=== PATIENT | female | born 1965 | race Caucasian/White ===

== ENCOUNTER → 2019-11-16 11:08 | Outpatient (CLI) | payer MEDICARE, SELFPAY ==
--- NOTE | ~2019-11-16 | DEXA_ITS ---
Bone Density Report Name: Sunni Ibarra Age: 54 Sex: Female Ethnicity: White Date of : 1965 Indication: postmenopausal; screening for osteoporosis; height loss; Referring Provider: GEMMA ANGELES Study: Bone densitometry was performed. Exam Date: November 16, 2019 Accession number: [id number] Bone Density: Region BMD T-score Z-score Classification AP Spine (L1-L4) 0.933 -1.0 0.0 Normal Femoral Neck (Left) 0.712 -1.2 -0.2 Osteopenia Total Hip (Left) 0.894 -0.4 0.3 Normal Femoral Neck (Right) 0.661 -1.7 -0.7 Osteopenia Total Hip (Right) 0.874 -0.6 0.1 Normal Total Hip Mean 0.884 -0.5 0.2 Normal World Health Organization criteria for BMD impression classify patients as: Normal (T-score at or above -1.0), Osteopenia (T-score between -1.0 and -2.5), or Osteoporosis (T-score at or below -2.5). 10-year Fracture Risk(1): Major Osteoporotic Fracture 5.7% Hip Fracture 0.4% Reported Risk Factors: [place] (), Neck BMD=0.661, BMI=44.2 (1) FRAX(R) Version 3.08. Fracture probability calculated for an untreated patient. Fracture probability may be lower if the patient has received treatment. Previous Exams: Region Exam Age BMD T-score BMD Change BMD Change Date g/cm2 vs Baseline vs Previous AP Spine(L1-L4) 11/16/2019 54 0.933 -1.0 -0.028* -0.028* 10/14/2016 51 0.961 -0.8 Total Hip(Left) 11/16/2019 54 0.894 -0.4 0.032* 0.032* 10/14/2016 51 0.862 -0.7 Total Hip(Right) 11/16/2019 54 0.874 -0.6 0.016 0.016 10/14/2016 51 0.858 -0.7 *Denotes significance at 95% confidence level, LSC for AP Spine = 0.022 g/cm2, LSC for Total Hip = 0.027 g/cm2 Clinical Information Provided by Patient: Patient maximum height was 67 Menopause Age: 49 No regular weight bearing exercise Does not regularly consume dairy products Drinks caffeinated beverages Onset of menses at age 9 Number of children 1 Impression: The patient has low bone mass, based on the Right Femoral Neck T-score. The patient has an estimated ten-year risk of hip fracture of 0.4% and an estimated ten-year risk of major fracture of 5.7%, based on the WHO FRAX algorithm. The BMD for the AP Spine(L1-L4) decreased, changing by -0.028 since the last DXA exam. Discussion: BONE DENSITY IS LOW AT ONE OR MORE SKELETAL SITES. This patient's lowest T-score is low at one or more skeletal sites. It meets the World Health O
== END ==
PROVIDERS: Visit Provider Obstetrics & Gynecology
DX: Z78.0 Asymptomatic menopausal state (principal); M85.851 Other specified disorders of bone density and structure, right thigh; M85.852 Other specified disorders of bone density and structure, left thigh
CPT/HCPCS: 77080

== ENCOUNTER 2020-11-07 13:59 | Emergency (ER) | payer MEDICARE, SELFPAY ==
--- NOTE | ~2020-11-07 | XR_ITS ---
XR chest 2V DATE: 11/07/2020 14:36 INDICATION: Cough for 4 days TECHNIQUE: 2 views COMPARISON: None FINDINGS: There is old pulmonary granulomatous disease on the left. No pulmonary infiltrate or consol idation, pleural effusion or pulmonary vascular congestion or pneumothorax. Normal heart size. No hilar or mediastinal enlargement. Included skeletal structures are unremarkable other than osteopenia. IMPRESSION: No active cardiopulmonary disease Reviewed, dictated and finalized at location A.
--- NOTE | 2020-11-07 14:04 | ED.URI ---
HPI - URI/Sore Throat General Chief Complaint: Upper Respiratory Infection Stated Complaint: cough Time Seen by Provider: 11/07/20 14:12 Source: patient and RN notes reviewed Mode of arrival: ambulatory Limitations: no limitations History of Present Illness HPI Narrative: 55-year-old female presents with concern for cough, body aches. Reports history of smoking, quit smoking 2 years ago. Reports symptoms started 4 days ago. Reports she was vaccinated for Covid with second dose being 10 days ago. She denies any history of COPD, asthma, emphysema. Denies rhinorrhea, nasal congestion, sore throat. MD elicited complaint: cough Related Data Home Medications Medication Instructions Recorded Confirmed fluoxetine 20 mg PO DAILY 04/07/19 11/07/20 lamotrigine 200 mg PO DAILY 04/07/19 11/07/20 levothyroxine 100 mcg PO DAILY 04/07/19 11/07/20 topiramate 50 mg PO DAILY 04/07/19 11/07/20 trazodone 100 mg PO DAILY 04/07/19 11/07/20 valacyclovir 500 mg PO DAILY 04/07/19 11/07/20 Allergies Allergy/AdvReac Type Severity Reaction Status Date / Time Penicillins Allergy Unknown Verified 12/27/18 16:56 Review of Systems Review of Systems: Narrative: CONSTITUTIONAL: Reports malaise. Denies chills, sweats, or fever. EYES: Denies visual changes, redness, or discharge. ENT: Denies rhinorrhea, congestion, sinus pain, otalgia and sore throat. CARDIOVASCULAR: Denies chest pain, palpitations, or edema. RESPIRATORY: Reports cough. Denies dyspnea. GASTROINTESTINAL: Denies abdominal pain, nausea, vomiting, diarrhea SKIN: Denies rash or itching. MUSCULOSKELETAL: Reports myalgia. NEUROLOGIC: Denies headache. All systems reviewed & are unremarkable except as noted in HPI and below PMFSH Comments At time of signature, agree with nursing past medical, surgical, social and family history. There is no relevant family history pertinent to the presenting complaint Exam Narrative: Exam Narrative: GENERAL: Well-appearing, well-nourished, and in no acute distress. HEAD: Normocephalic EYES: PERRLA, conjunctivae clear ENT: Nares clear. Mucous membranes moist. TM pearly valdez with dull light reflex bilaterally; no tragal tenderness. Oropharynx erythematous without lesions. Tonsils not enlarged and without exudate, no drooling, no hoarseness, no trismus, uvula midline. NECK: Supple. No lymphadenopathy CHEST: Scattered wheezing, rhonchi, breath sounds equal. No rales, or stridor. No respiratory distress, speaks in full sentences. HEART: Regular rate and rhythm. No murmur heard. SKIN: Warm, dry, no rash. NEURO: Alert and oriented x3. PSYCH: Normal mood and affect Course Course Emergency Course: Patient is aware of diagnosis, understands and agrees to treatment plan. Anticipatory guidance given. Patient agrees to follow-up as directed and is aware of reasons to seek care at the emergency department. Portions of this record may have been created with voice recognition software Reevaluation(s) Date: 11/07/20 Time: 15:19 Reevaluation #2: Wheezing and rhonchi slightly improved, aeration improved Vital Signs Vital signs: Reviewed. MDM - URI/Sore Throat MDM Narrative Medical decision making narrative: Differential diagnosis considered: [place] virus, strep pharyngitis, allergic rhinitis, upper respiratory tract infection, sinusitis, rhinosinusitis, nasopharyngitis. viral pharyngitis, otitis media, otitis externa, pneumonia, bronchitis, viral cough syndrome, viral syndrome, and influenza. Exam findings show no acute concerns or changes; patient is non-toxic appearing and is in no distress. Patient is appropriate for outpatient treatment and follow-up. Lab Data Attestation: I reviewed the patient's lab results. Imaging Data My impression: Images reviewed, interpreted by radiologist, agree, see report. Radiologist's impression: XR chest 2V DATE: 11/07/2020 14:36 INDICATION: Cough for 4 days TECHNIQUE: 2 views COMPARISON: None FINDINGS: There is old pul
[2020-11-07 14:09] VITALS: BP 115/72; PULSE 113; RESP 16; TEMP 37.2; O2SAT 96
[2020-11-07] MEDS: ALBUTEROL SULFATE NEB 2.5 MG/3 ML INH INHALATION (14:56)
[2020-11-07] MEDS: IPRATROPIUM BR 0.02% INH SOLN 0.5 MG/2.5 ML VIAL INHALATION (14:56)
[2020-11-07 15:00] VITALS: PULSE 113; RESP 16; O2SAT 96
== END 2020-11-07 15:27 | disposition home or self-care (01) ==
PROVIDERS: Emergency Provider Nurse Practitioner
DX: J06.9 Acute upper respiratory infection, unspecified (principal); Z20.822 Contact with and (suspected) exposure to COVID-19; Z87.891 Personal history of nicotine dependence; E03.9 Hypothyroidism, unspecified
CPT/HCPCS: 71046; 87426; 99213; C9803; G0463

== ENCOUNTER 2021-08-15 12:54 | Emergency (ER) | payer MEDICARE, SELFPAY ==
[2021-08-15 13:07] VITALS: BP 131/78; PULSE 96; RESP 16; TEMP 36.4; O2SAT 99
--- NOTE | 2021-08-15 13:12 | ED.EAR ---
HPI - Ear Problem General Chief complaint: Ear Stated complaint: Ear Pain Time Seen by Provider: 08/15/21 13:12 Source: patient Mode of arrival: ambulatory Limitations: no limitations History of Present Illness HPI Narrative: 56-year-old female presents with right ear pain that started this morning. States that she has had sinus congestion, sinus pressure, postnasal drainage 3 weeks. Did take a Z-Freddy about 3 weeks ago for sinus infection that her primary care physician prescribed. States that did not treat her symptoms. Is taking a [id number] cold and sinus medication. Does not take daily allergy medication. Afebrile. All systems reviewed and negative except as noted above. Related Data Home Medications Medication Instructions Recorded Confirmed fluoxetine 20 mg PO DAILY 04/07/19 08/15/21 lamotrigine 200 mg PO DAILY 04/07/19 08/15/21 levothyroxine 100 mcg PO DAILY 04/07/19 08/15/21 topiramate 50 mg PO DAILY 04/07/19 08/15/21 trazodone 100 mg PO DAILY 04/07/19 08/15/21 valacyclovir 500 mg PO DAILY 04/07/19 08/15/21 Allergies Allergy/AdvReac Type Severity Reaction Status Date / Time Penicillins Allergy Unknown Other Verified 08/15/21 13:05 Review of Systems Review of Systems: CONSTITUTIONAL: Denies fever, chills, or sweats. EYES: Denies visual changes, redness, or discharge. ENT: Reports rhinorrhea, congestion, right ear pain.. Denies sore throat. CARDIOVASCULAR: Denies chest pain, palpitations, or edema. RESPIRATORY: Denies cough or dyspnea. GASTROINTESTINAL: Denies abdominal pain, nausea, vomiting, or diarrhea. GENITOURINARY: Denies dysuria or hematuria. SKIN: Denies rash or itching. MUSCULOSKELETAL: Denies back pain, joint pain, or myalgia. NEUROLOGIC: Denies headache, numbness, or weakness. PSYCHIATRIC: Denies anxiety or depression. All other systems reviewed are negative, except as documented in HPI. PMFSH Comments At time of signature, agree with nursing past medical, surgical, social and family history. There is no relevant family history pertinent to the presenting complaint. Exam Narrative: GENERAL: This is a well-nourished, well-developed patient, in no apparent distress. HEAD: normocephalic, atraumatic. EYES: PERRL. Sclera clear/white. Vision is grossly intact. EARS: External ears normal, auditory canals clear and without drainage, TMs normal without perforation. Right TM is erythematous with fluid and retracted. NOSE: External nose normal with moderate congestion, maxillary sinus tenderness. Erythema and swelling to the areas. THROAT: Mucous membranes moist, posterior pharynx clear. NECK: Neck supple, non-tender without lymphadenopathy, masses or thyromegaly. CARDIOVASCULAR: Regular rate and rhythm without murmurs, gallops, or rubs. RESPIRATORY: Clear to auscultation. Breath sounds equal bilaterally. No wheezes, rales, or rhonchi. SKIN: warm, Dry, intact with no suspicious lesions or rash, good texture and turgor. NEURO: awake, alert, and oriented to person, place and time. There were no obvious focal neurologic abnormalities. EXTREMITIES: Normal range of motion to all extremities. Course Course Level of Care: Express Care Visit Vital Signs Vital signs: Vital Signs Temperature 36.4 C 08/15/21 13:07 Pulse Rate 96 08/15/21 13:07 Respiratory Rate 16 08/15/21 13:07 Blood Pressure 131/78 08/15/21 13:07 Pulse Oximetry 99 08/15/21 13:07 Temperature 36.4 C 08/15/21 13:07 Pulse Rate 96 08/15/21 13:07 Respiratory Rate 16 08/15/21 13:07 Blood Pressure 131/78 08/15/21 13:07 Pulse Oximetry 99 08/15/21 13:07 Reviewed Medical Decision Making MDM Narrative Medical decision making narrative: Patient is aware of diagnosis, understands and agrees to treatment plan. Anticipatory guidance given. Patient agrees to follow-up as directed and is aware of reasons to seek care at the emergency department. Portions of this record may have been created with voice recogni
== END 2021-08-15 13:23 | disposition home or self-care (01) ==
PROVIDERS: Emergency Provider Nurse Practitioner Family; PCP Internal Medicine
DX: H65.01 Acute serous otitis media, right ear (principal); J01.90 Acute sinusitis, unspecified; E03.9 Hypothyroidism, unspecified
CPT/HCPCS: 99213; G0463

== ENCOUNTER 2022-02-01 13:30 | Emergency (ER) | payer MEDICARE, SELFPAY ==
[2022-02-01 13:41] VITALS: BP 134/84; PULSE 101; RESP 16; TEMP 36.9; O2SAT 99
--- NOTE | 2022-02-01 14:00 | ED.URI ---
HPI - URI/Sore Throat General Chief Complaint: Upper Respiratory Infection Stated Complaint: Cough, Fatique, SOB Time Seen by Provider: 02/01/22 14:00 Source: patient, RN notes reviewed and old records reviewed Mode of arrival: ambulatory Limitations: no limitations History of Present Illness HPI Narrative: 56-year-old female presents to the [facility] with complaints of a cough, fatigue and intermittent shortness of breath. Chest wall pain when coughing. Reports it is a productive cough. No sinus drainage. No fevers. Denies nausea or vomiting. No ankle swelling Related Data Home Medications Medication Instructions Recorded Confirmed fluoxetine 20 mg capsule 20 mg PO DAILY 04/07/19 08/15/21 lamotrigine 200 mg tablet 200 mg PO DAILY 04/07/19 08/15/21 levothyroxine 100 mcg tablet 100 mcg PO DAILY 04/07/19 08/15/21 topiramate 50 mg tablet 50 mg PO DAILY 04/07/19 08/15/21 zaleplon 10 mg capsule mg 02/01/22 Allergies Allergy/AdvReac Type Severity Reaction Status Date / Time Penicillins Allergy Unknown Other Verified 02/01/22 13:34 Review of Systems Review of Systems: All systems reviewed & are unremarkable except as noted in HPI and below Constitutional: Constitutional: Reports no additional constitutional complaints, Denies chills and Denies fever(s) Eyes: Eyes: Reports no additional eye complaints ENT: Reports system reviewed and no additional complaints, except as documented Cardiovascular: Cardiovascular: Reports no additional cardiovascular complaints Respiratory: Respiratory: Reports as per HPI, Denies chest congestion, Reports cough, Reports dyspnea and Denies wheezing Gastrointestinal: Gastrointestinal: Reports no additional gastrointestinal complaints Musculoskeletal: Musculoskeletal: Reports no additional musculoskeletal complaints Integumentary/Breasts: Skin/Breast: Reports system reviewed and no additional complaints, except as docu Neurologic: Reports system reviewed and no additional complaints, except as documented Psychiatric: Psychiatric: Reports no additional psychiatric complaints Allergic/Immunologic: Allergic/Immunologic: Reports no additional allergic/immunologic complaints PMFSH Comments At the time of my signature, I reviewed and agree with the nursing past medical, surgical, social, and family history. There is no relevant family history pertinent to the patient complaint. Exam Const: General: healthy appearing, no acute distress, alert and well nourished Nutritional Appearance: well nourished Orientation/consciousness: patient oriented x3 Limitations: no limitations HENMT: Head: normal to inspection Ears: external ears normal, TM's normal bilaterally and EAC's normal Face/Nose/Sinus: Normal external nose present and Normal nares present Face and sinus: normal facial exam Throat: posterior oropharynx normal and uvula midline Eyes: General: appearance normal, both eyes and all related structures Conjunctivae: conjunctivae normal Pupils: Equal, round and reactive pupils present Neck: Neck: normal visual inspection, no lymphadenopathy and no meningeal signs Chest: Chest palpation & inspection: normal inspection of the chest Resp: Effort & Inspection: normal respiratory effort and no use of accessory muscles Auscultation: clear to auscultation bilaterally, no crackles, no rales, no rhonchi and no wheezes Cardio: Rate: regular rate Rhythm: regular rhythm Back/Spine/Pelvis: Cervical Spine: normal cervical lordosis Thoracic/Lumbar Spine: thoracic and lumbar spine normal to inspection Skin: General skin exam: normal color Rashes: no rashes Wounds: no wounds Neuro: General: patient oriented x3, moves all extremities, no meningeal signs and no focal motor deficits Cranial nerves: Yes Equal, round and reactive pupils present Speech: normal speech Gait exam (Neuro): Normal gait present Extrem: General: normal to inspection, full ROM and capillary refill normal Psych: Appe
== END 2022-02-01 14:10 | disposition home or self-care (01) ==
PROVIDERS: Emergency Provider Nurse Practitioner; PCP Internal Medicine
DX: J06.9 Acute upper respiratory infection, unspecified (principal); J40 Bronchitis, not specified as acute or chronic; E03.9 Hypothyroidism, unspecified; E11.9 Type 2 diabetes mellitus without complications; Z86.16 Personal history of COVID-19
CPT/HCPCS: 99213; G0463

== ENCOUNTER 2022-05-13 09:26 | Emergency (ER) | payer MEDICARE, MEDICAID, SELFPAY ==
--- NOTE | ~2022-05-13 | XR_ITS ---
EXAMINATION: XR chest 2V DATE: 05/13/2022 10:16 INDICATION: Cough. TECHNIQUE: Frontal and lateral views of the chest were obtained. COMPARISON: Chest 2 views 11/07/2020 FINDINGS: A calcified left lung nodule and calcified left hilar lymph nodes are consistent with old g ranulomatous disease. No pleural effusion or pneumothorax. The heart size is normal. IMPRESSION: 1. No acute cardiopulmonary disease. Reviewed, dictated and finalized at location A. PANNER
[2022-05-13 09:44] VITALS: BP 143/87; PULSE 104; RESP 22; TEMP 37.1; O2SAT 98
--- NOTE | 2022-05-13 09:45 | ED.URI ---
HPI - URI/Sore Throat General Chief Complaint: Upper Respiratory Infection Stated Complaint: Cough Time Seen by Provider: 05/13/22 09:46 Source: patient, RN notes reviewed and old records reviewed Mode of arrival: ambulatory Limitations: no limitations History of Present Illness HPI Narrative: 57-year-old female presents to the [facility] with complaints of a cough with chest congestion since Tuesday, 5 days. Patient is an ex-smoker. Denies any fevers, chest pain, abdominal pain. No nausea vomiting or diarrhea. Related Data Home Medications Medication Instructions Recorded Confirmed fluoxetine 20 mg capsule 20 mg PO DAILY 04/07/19 05/13/22 lamotrigine 200 mg tablet 200 mg PO DAILY 04/07/19 05/13/22 levothyroxine 100 mcg tablet 100 mcg PO DAILY 04/07/19 05/13/22 topiramate 50 mg tablet 50 mg PO DAILY 04/07/19 05/13/22 Allergies Allergy/AdvReac Type Severity Reaction Status Date / Time Penicillins Allergy Unknown Other Verified 05/13/22 09:42 Review of Systems Review of Systems: All systems reviewed & are unremarkable except as noted in HPI and below Constitutional: Constitutional: Reports no additional constitutional complaints Eyes: Eyes: Reports no additional eye complaints ENT: Reports system reviewed and no additional complaints, except as documented Cardiovascular: Cardiovascular: Reports no additional cardiovascular complaints, Denies chest pain and Denies dyspnea Respiratory: Respiratory: Reports as per HPI, Reports chest congestion, Reports cough and Denies dyspnea Gastrointestinal: Gastrointestinal: Reports no additional gastrointestinal complaints, Denies abdominal pain, Denies nausea and Denies vomiting Musculoskeletal: Musculoskeletal: Reports no additional musculoskeletal complaints Integumentary/Breasts: Skin/Breast: Reports system reviewed and no additional complaints, except as docu Neurologic: Reports system reviewed and no additional complaints, except as documented Psychiatric: Psychiatric: Reports no additional psychiatric complaints Allergic/Immunologic: Allergic/Immunologic: Reports no additional allergic/immunologic complaints PMFSH Past Medical History Medical History (Updated 05/13/22 @ 18:30 by Jaclyn Lundy APRN) Anxiety and depression Hypothyroid Comments At the time of my signature, I reviewed and agree with the nursing past medical, surgical, social, and family history. There is no relevant family history pertinent to the patient complaint. Exam Const: General: cooperative, healthy appearing, comfortable, no acute distress, well developed, alert and well nourished Nutritional Appearance: well nourished and obese Orientation/consciousness: patient oriented x3 Limitations: no limitations HENMT: Head: normal to inspection Ears: hearing grossly normal bilaterally and external ears normal Face/Nose/Sinus: Normal external nose present, Normal nares present, Normal nasal mucous membranes and turbinates present and normal facial exam Face and sinus: normal facial exam Mouth: Yes Normal oral and palatal mucosa present, Yes lip normal and Yes moist mucous membranes Throat: posterior oropharynx normal and uvula midline Eyes: General: appearance normal, both eyes and all related structures Alignment and Position: alignment normal Periorbital: periorbital findings normal Conjunctivae: conjunctivae normal Pupils: Equal, round and reactive pupils present EOM: EOMs intact bilaterally Neck: Neck: normal visual inspection, full ROM, no lymphadenopathy and no meningeal signs Chest: Chest palpation & inspection: normal inspection of the chest Resp: Effort & Inspection: normal respiratory effort and able to speak in complete sentences Auscultation: no crackles, no rales, no rhonchi, wheezes left lower and right lower and diminished lung sounds bilateral throughout Cardio: Rate: regular rate Rhythm: regular rhythm Back/Spine/Pelvis: Cervical Spine: cervical ROM normal Thora
[2022-05-13] MEDS: ALBUTEROL SULFATE NEB 2.5 MG/3 ML INH INHALATION (10:26)
[2022-05-13] MEDS: IPRATROPIUM BR 0.02% INH SOLN 0.5 MG/2.5 ML VIAL INHALATION (10:26)
[2022-05-13 11:03] VITALS: PULSE 107; RESP 22; O2SAT 100
== END 2022-05-13 10:59 | disposition home or self-care (01) ==
PROVIDERS: Emergency Provider Nurse Practitioner; PCP Internal Medicine
DX: J40 Bronchitis, not specified as acute or chronic (principal)
CPT/HCPCS: 71046; 94640; 99213; G0463

== ENCOUNTER → 2022-09-13 12:47 | Outpatient (CLI) | payer MEDICARE, MEDICAID, SELFPAY ==
--- NOTE | ~2022-09-13 | MM_ITS ---
EXAMINATION: MM screening [facility] BI w odin HISTORY: Screening mammogram TECHNIQUE: Craniocaudal and mediolateral oblique 3-D tomosynthesis images were obtained and synthetic 2-D images were generated. CAD analysis was submitted and interpreted. COMPARISON: 04/09/2019, 01/30/2018, 10/14/2016 BREAST PARENCHYMAL COMPOSITION: The breasts are almost entirely fatty. FINDINGS: RIGHT BREAST: There is a possible mass near the nipple measuring 4mm. No suspicious calcification or architectural distortion are identified. LEFT BREAST: No suspicious mass, calcification, or architectural distortion are identified to suggest malignancy. There has been no suspicious interval change. IMPRESSION: 1. No mammographic evidence of malignancy. 2. Additional mammographic views and possible breast ultrasound are recommended. BI-RADS Category 0: Incomplete: Needs additional imaging evaluation. Reviewed, dictated and finalized at location A. IMPRESSION: 1. No mammographic evidence of malignancy. 2. Additional mammographic views and possible breast ultrasound are recommended . BI-RADS Category 0: Incomplete: Needs additional imaging evaluation.
== END ==
PROVIDERS: PCP Nurse Practitioner Family
DX: Z12.31 Encounter for screening mammogram for malignant neoplasm of breast (principal); R92.8 Other abnormal and inconclusive findings on diagnostic imaging of breast
CPT/HCPCS: 77063; 77067

== ENCOUNTER → 2022-10-11 09:14 | Outpatient (CLI) | payer MEDICARE, MEDICAID, SELFPAY ==
--- NOTE | ~2022-10-11 | MMUS_ITS ---
EXAMINATION: MM diagnostic [facility] RT w odin, US breast RT limited HISTORY: Possible subareolar mass reported on 09/13/2022 screening mammogram TECHNIQUE: Additional 3-D tomosynthesis images of the right breast were performed and synthetic 2-D i mages were generated. CAD analysis was submitted and interpreted. High resolution targeted right suba reolar breast ultrasound was performed. COMPARISON: 09/13/2022 bilateral screening mammogram FINDINGS: MAMMOGRAPHIC FINDINGS: A low-density circumscribed approximately 5.3 x 6.5 mm opacity is noted in the subareolar area of the right breast. ULTRASOUND: 12-1:00 subareolar area: Parallel circumscribed hypoechoic 2.5 x 6.5 mm lesion with central fatty hil us, without suspicious shadowing, likely benign lymph node. IMPRESSION: 1. Probable benign finding, right subareolar area 2. 6 month diagnostic right mammogram and right breast ultrasound follow-up are recommended BI-RADS category 3, probably benign findings. Reviewed, dictated and finalized at location A. IMPRESSION: 1. Probable benign finding, right subareolar area 2. 6 month diagnostic right mammogram and right breast ultrasound follow-up are recommended BI-RADS category 3, probably benign findings.
== END ==
PROVIDERS: PCP Nurse Practitioner Family
DX: R92.8 Other abnormal and inconclusive findings on diagnostic imaging of breast (principal)
CPT/HCPCS: 76642; 77061; 77065; G0279

== ENCOUNTER 2022-12-13 12:13 | Emergency (ER) | payer MEDICARE, MEDICAID, SELFPAY ==
[2022-12-13 12:28] VITALS: BP 133/72; PULSE 88; RESP 16; TEMP 36.6; O2SAT 97
--- NOTE | 2022-12-13 12:41 | ED.SKABFB ---
HPI - Skin/Abscess/Foreign Bdy General Chief complaint: Skin/Abscess/Foreign Body Stated complaint: Poison Kylie Time Seen by Provider: 12/13/22 12:41 Source: patient Mode of arrival: ambulatory Limitations: no limitations History of Present Illness HPI narrative: 57-year-old female with hx DM presented for complaint of spreading poison kylie rash to both arms and left side of her face for 5 days. States rash started after being outside. Described as red and itchy; denies pain or drainage. She has not taken anything for symptoms but has been applying Kylie dry. Denies lip, tongue, or throat swelling, shortness of breath or wheezing. Denies changes to soap, detergent, lotion, or any other exposures. No one else in the house or any contacts with similar symptoms. States she had contacted her pcp this morning, they called in Rx Inside Secure pack while in clinic today. Related Data Home Medications Medication Instructions Recorded Confirmed fluoxetine 20 mg capsule 20 mg PO DAILY 04/07/19 12/13/22 lamotrigine 200 mg tablet 200 mg PO DAILY 04/07/19 12/13/22 levothyroxine 100 mcg tablet 100 mcg PO DAILY 04/07/19 12/13/22 topiramate 50 mg tablet 50 mg PO DAILY 04/07/19 12/13/22 metformin 500 mg tablet 500 mg PO DAILY 12/13/22 12/13/22 rosuvastatin 5 mg tablet 5 mg PO DAILY 12/13/22 12/13/22 Allergies Allergy/AdvReac Type Severity Reaction Status Date / Time Penicillins Allergy Unknown Other Verified 12/13/22 12:15 Review of Systems Review of Systems: CONSTITUTIONAL: Denies body aches, fever, chills, or sweats. EYES: Denies visual changes, redness, or discharge. ENT: Denies rhinorrhea, congestion CARDIOVASCULAR: Denies chest pain, palpitations, or edema. RESPIRATORY: Denies cough or dyspnea. GASTROINTESTINAL: Denies abdominal pain, nausea, vomiting, or diarrhea. SKIN: Reports rash to forearms and face MUSCULOSKELETAL: Denies back pain, joint pain, or myalgia. NEUROLOGIC: Denies headache, numbness, tingling, or weakness. [facility], [facility] Past Medical History Medical History Anxiety and depression Hypothyroid Comments At time of signature, I have reviewed and agree with nursing past medical, surgical, social and family history unless otherwise noted. Please see nursing chart for further information. There is no relevant family history pertinent to the presenting complaint Exam Narrative: GENERAL: Well-appearing HEAD: Normocephalic, atraumatic. EYES: conjunctivae clear, and EOMI. ENT: Mucous membranes moist. Oropharynx without edema, erythema or lesions. NECK: Supple. No lymphadenopathy CHEST: Clear to auscultation. HEART: Regular rate and rhythm. SKIN: Warm, dry. Scattered erythematous with noted to distal forearms and left face consistent with contact dermatitis, no active drainage, tenderness, or fluctuance to the sites NEURO: Alert and oriented x3. Course Course Emergency Course: Patient is aware of diagnosis, understands and agrees to treatment plan. Anticipatory guidance given. Patient agrees to follow-up as directed and is aware of reasons to seek care at the emergency department. Portions of this record may have been created with voice recognition software Level of Care: Express Care Visit Vital Signs Vital signs: Vital Signs Temperature 98 F 12/13/22 12:28 Pulse Rate 88 12/13/22 12:28 Respiratory Rate 16 12/13/22 12:28 Blood Pressure 133/72 12/13/22 12:28 Pulse Oximetry 97 12/13/22 12:28 Oxygen Delivery Room Air 12/13/22 12:28 Temperature 98 F 12/13/22 12:28 Pulse Rate 88 12/13/22 12:28 Respiratory Rate 16 12/13/22 12:28 Blood Pressure 133/72 12/13/22 12:28 Pulse Oximetry 97 12/13/22 12:28 Oxygen Delivery Room Air 12/13/22 12:28 Reviewed MDM - Skin/Abscess/Foreign Bdy MDM Narrative Medical decision making narrative: Discussed physical exam findings. Pt's pcp called in Medrol pack while she
== END 2022-12-13 12:51 | disposition home or self-care (01) ==
PROVIDERS: Emergency Provider Nurse Practitioner Family
DX: L25.9 Unspecified contact dermatitis, unspecified cause (principal); E03.9 Hypothyroidism, unspecified; F41.9 Anxiety disorder, unspecified; F32.A Depression, unspecified
CPT/HCPCS: 99211; G0463

== ENCOUNTER 2022-12-16 14:14 | Emergency (ER) | payer MEDICARE, MEDICAID, SELFPAY ==
[2022-12-16 14:32] VITALS: BP 127/83; PULSE 89; RESP 20; TEMP 36.7; O2SAT 95
--- NOTE | 2022-12-16 14:41 | ED.SKABFB ---
HPI - Skin/Abscess/Foreign Bdy General Chief complaint: Skin/Abscess/Foreign Body Stated complaint: Rash Time Seen by Provider: 12/16/22 14:57 Source: patient, RN notes reviewed and old records reviewed Mode of arrival: ambulatory Limitations: no limitations History of Present Illness HPI narrative: 57-year-old female presents to the [facility] after being evaluated 3 days ago. Patient states her her rash is not gone, has only been on the steroids for 3 days. Discussed alternative treatment with patient. Patient states that the rash to her face is gone, but the wants to her wrist States that she tried calling her primary care provider and was referred to the [facility] Related Data Home Medications Medication Instructions Recorded Confirmed fluoxetine 20 mg capsule 20 mg PO DAILY 04/07/19 12/13/22 lamotrigine 200 mg tablet 200 mg PO DAILY 04/07/19 12/13/22 levothyroxine 100 mcg tablet 100 mcg PO DAILY 04/07/19 12/13/22 topiramate 50 mg tablet 50 mg PO DAILY 04/07/19 12/13/22 metformin 500 mg tablet 500 mg PO DAILY 12/13/22 12/13/22 rosuvastatin 5 mg tablet 5 mg PO DAILY 12/13/22 12/13/22 methylprednisolone 4 mg tablets in mg 12/16/22 a dose pack Allergies Allergy/AdvReac Type Severity Reaction Status Date / Time Penicillins Allergy Unknown Other Verified 12/13/22 12:15 Review of Systems Review of Systems: All systems reviewed & are unremarkable except as noted in HPI and below Constitutional: Constitutional: Reports no additional constitutional complaints Eyes: Eyes: Reports no additional eye complaints ENT: Reports system reviewed and no additional complaints, except as documented Cardiovascular: Cardiovascular: Reports no additional cardiovascular complaints, Denies chest pain and Denies dyspnea Respiratory: Respiratory: Reports no additional respiratory complaints, Denies chest congestion, Denies cough and Denies dyspnea Gastrointestinal: Gastrointestinal: Reports no additional gastrointestinal complaints, Denies abdominal pain, Denies nausea and Denies vomiting Musculoskeletal: Musculoskeletal: Reports no additional musculoskeletal complaints Integumentary/Breasts: Skin/Breast: Reports as per HPI and Reports rash Neurologic: Reports system reviewed and no additional complaints, except as documented Psychiatric: Psychiatric: Reports no additional psychiatric complaints Allergic/Immunologic: Allergic/Immunologic: Reports no additional allergic/immunologic complaints [facility] Past Medical History Medical History (Updated 12/16/22 @ 19:25 by SADIE Christy Anxiety and depression Hypothyroid Type 2 diabetes mellitus Comments At the time of my signature, I reviewed and agree with the nursing past medical, surgical, social, and family history. There is no relevant family history pertinent to the patient complaint. Exam Const: General: cooperative, healthy appearing, comfortable, no acute distress, well developed, alert and well nourished Nutritional Appearance: well nourished Orientation/consciousness: patient oriented x3 Limitations: no limitations HENMT: Head: normal to inspection Ears: hearing grossly normal bilaterally and external ears normal Face/Nose/Sinus: Normal external nose present, Normal nares present, Normal nasal mucous membranes and turbinates present and normal facial exam Face and sinus: normal facial exam Eyes: General: appearance normal, both eyes and all related structures Alignment and Position: alignment normal Periorbital: periorbital findings normal Pupils: Equal, round and reactive pupils present EOM: EOMs intact bilaterally Neck: Neck: normal visual inspection, full ROM, no lymphadenopathy and no meningeal signs Chest: Chest palpation & inspection: normal inspection of the chest Resp: Effort & Inspection: normal respiratory effort and able to speak in complete sentences Auscultation: clear to auscultation bilaterally, no crackles, no rales, no rhonchi and no w
[2022-12-16 15:18] LABS: Glucose Point of Care 123 mg/dl (65-105)
== END 2022-12-16 15:29 | disposition home or self-care (01) ==
PROVIDERS: Emergency Provider Nurse Practitioner; PCP Nurse Practitioner Family
DX: L25.9 Unspecified contact dermatitis, unspecified cause (principal); L50.9 Urticaria, unspecified; E11.9 Type 2 diabetes mellitus without complications; E03.9 Hypothyroidism, unspecified; F41.9 Anxiety disorder, unspecified; F32.A Depression, unspecified
CPT/HCPCS: 82948; 99212; G0463

== ENCOUNTER 2023-03-11 13:21 | Emergency (ER) | payer MEDICARE, MEDICAID, SELFPAY ==
--- NOTE | 2023-03-11 13:25 | ED.URI ---
HPI - URI/Sore Throat General Chief Complaint: Upper Respiratory Infection Stated Complaint: Cough Time Seen by Provider: 03/11/23 13:25 Source: patient Mode of arrival: ambulatory Limitations: no limitations History of Present Illness HPI Narrative: Sunni is a 58-year-old female patient presenting to the clinic today with complaints of a cough, runny nose, and nasal congestion x3 days. She denies any fever or chills. No known exposure to anyone with COVID, flu, or strep. Denies sore throat. Denies any new medication changes. Related Data Home Medications Medication Instructions Recorded Confirmed fluoxetine 20 mg capsule 20 mg PO DAILY 04/07/19 03/11/23 lamotrigine 200 mg tablet 200 mg PO DAILY 04/07/19 03/11/23 levothyroxine 100 mcg tablet 100 mcg PO DAILY 04/07/19 03/11/23 topiramate 50 mg tablet 50 mg PO DAILY 04/07/19 03/11/23 metformin 500 mg tablet 500 mg PO DAILY 12/13/22 03/11/23 rosuvastatin 5 mg tablet 5 mg PO DAILY 12/13/22 03/11/23 clonazepam 2 mg tablet 2 mg PO DIRECTED 03/11/23 03/11/23 Allergies Allergy/AdvReac Type Severity Reaction Status Date / Time Penicillins Allergy Unknown Other Verified 03/11/23 13:29 Review of Systems Review of Systems: Pertinent positives per HPI. Patient denies any fever, chills, rash, headache, visual changes, dizziness, sore throat, shortness of breath, chest pain, palpitations, nausea, vomiting, diarrhea, constipation, abdominal pain, or any urinary issues. PMFSH Past Medical History Medical History Anxiety and depression Hypothyroid Type 2 diabetes mellitus Comments At the time of my signature, I reviewed and agree with the nursing past medical, surgical, social, and family history. There is no relevant family history pertinent to the patient complaint. Exam Narrative: General: Well-developed, well nourished, in no apparent distress Head: Normocephalic, atraumatic Eyes: Pupils equally round and reactive to light bilaterally, EOM intact, sclera and conjunctive clear, no discharge, lids normal Ears: TMs intact and clear, ear canals clear, no drainage, grossly hearing normal. Nose: Nares patent, no discharge, no inflammation, no sinus tenderness. Mouth: Oropharynx without lesions or masses, good dentition, MMM. Neck: Supple, trachea midline, no enlargement of anterior or posterior cervical nodes, no thyroid masses or goiter palpable. Cardio: Regular rate and rhythm, s1 and s2 normal, no murmur appreciated. Resp: Clear to auscultation bilaterally anteriorly and posteriorly, no rhonchi, rales, wheezing or rubs Course Course Emergency Course: Portions of this record may have been created with voice recognition software. Level of Care: Express Care Visit Vital Signs Vital signs: Vital signs reviewed MDM - URI/Sore Throat MDM Narrative Medical decision making narrative: At the time of visit patient is resting comfortably on the exam table. I suspect patient has URI. Supportive measures were discussed with the patient she voiced understanding discharge instructions and agrees to treatment plan. Prescription for Tessalon Perles was sent to the pharmacy. Differential Diagnosis Differential diagnosis: Likely upper respiratory infection, otitis media, sinusitis, viral infection, bronchitis, influenza, pharyngitis and other (COVID) Discharge Plan Discharge Clinical Impression: Upper respiratory infection Patient Disposition: Home, Self-Care Condition: Stable Instructions: Antibiotic Form, Upper Respiratory Infection (ED) Additional Instructions: Take prescription medications only as prescribed-benzonatate Increase fluids and stay well hydrated Tylenol/motrin for pain/fever Flonase and OTC antihistamines as directed Vicks vapor rub to open sinuses Sinus rinses for congestion Cepacol spray, cough drops, throat lozenges, warm tea with honey/lemon, gargle salt wa
[2023-03-11 13:34] VITALS: BP 144/87; PULSE 105; RESP 20; TEMP 36.7; O2SAT 97
== END 2023-03-11 13:40 | disposition home or self-care (01) ==
PROVIDERS: Emergency Provider Nurse Practitioner Family; PCP Nurse Practitioner Family
DX: J06.9 Acute upper respiratory infection, unspecified (principal); E03.9 Hypothyroidism, unspecified; E11.9 Type 2 diabetes mellitus without complications; Z79.84 Long term (current) use of oral hypoglycemic drugs; F41.9 Anxiety disorder, unspecified; F32.A Depression, unspecified
CPT/HCPCS: 99213; G0463

== ENCOUNTER 2023-03-16 15:45 | Emergency (ER) | payer MEDICARE, MEDICAID, SELFPAY ==
[2023-03-16 15:55] VITALS: BP 121/82; PULSE 96; RESP 18; TEMP 36.7; O2SAT 99
--- NOTE | 2023-03-16 16:31 | ED.URI ---
HPI - URI/Sore Throat General Chief Complaint: Upper Respiratory Infection Stated Complaint: Cough Time Seen by Provider: 03/16/23 16:28 Source: patient, RN notes reviewed and old records reviewed Mode of arrival: ambulatory Limitations: no limitations History of Present Illness HPI Narrative: Patient presents today complaining of an 8 day history of cough that is worse in the evening. Denies fever, congestion, rhinorrhea, sore throat, shortness of breath. She was seen at [facility] days ago and given a prescription for Tessalon Perles that has not been providing any relief. Patient had some leftover codeine liquid cough medicine at home, which does help her sleep for short periods of time, but she has run out. Related Data Home Medications Medication Instructions Recorded Confirmed fluoxetine 20 mg capsule 20 mg PO DAILY 04/07/19 03/16/23 lamotrigine 200 mg tablet 200 mg PO DAILY 04/07/19 03/16/23 levothyroxine 100 mcg tablet 100 mcg PO DAILY 04/07/19 03/16/23 topiramate 50 mg tablet 50 mg PO DAILY 04/07/19 03/16/23 metformin 500 mg tablet 500 mg PO DAILY 12/13/22 03/16/23 rosuvastatin 5 mg tablet 5 mg PO DAILY 12/13/22 03/16/23 clonazepam 2 mg tablet 2 mg PO DIRECTED 03/11/23 03/16/23 Allergies Allergy/AdvReac Type Severity Reaction Status Date / Time Penicillins Allergy Unknown Other Verified 03/16/23 15:54 Review of Systems Review of Systems: CONSTITUTIONAL: Denies body aches, fever, chills, or sweats. EYES: Denies visual changes, redness, or discharge. ENT: Denies rhinorrhea, congestion, sore throat, or otalgia. CARDIOVASCULAR: Denies chest pain, palpitations, or edema. RESPIRATORY: Denies dyspnea.+ cough GASTROINTESTINAL: Denies abdominal pain, nausea, vomiting, or diarrhea. GENITOURINARY: Denies dysuria or hematuria. SKIN: Denies rash, itching, or wounds. MUSCULOSKELETAL: Denies back pain, joint pain, or myalgia. NEUROLOGIC: Denies headache, numbness, tingling, or weakness. PSYCH: Denies depression or anxiety. [facility] Past Medical History Medical History Anxiety and depression Hypothyroid Type 2 diabetes mellitus Comments At time of signature, I have reviewed and agree with nursing past medical, surgical, social and family history unless otherwise noted. Please see nursing chart for further information. There is no relevant family history pertinent to the presenting complaint Exam Narrative: GENERAL: Well-appearing, well-nourished, and in no acute distress. HEAD: Normocephalic, atraumatic. EYES: EOMI. No redness or drainage. Conjunctivae normal. ENT: Mucous membranes pink and moist. Nares clear. No rhinorrhea. TMs normal bilaterally. Throat normal. Uvula midline. NECK: Normal AROM. Supple. No lymphadenopathy. CHEST: No respiratory distress. Clear to auscultation. HEART: Regular rate and rhythm. No murmur appreciated. Normal peripheral pulses. EXTREMITIES: Normal range of motion. No edema. SKIN: Warm, dry, no rash. Capillary refill normal. Normal skin turgor. NEURO: No focal deficits. Alert and oriented x3. Gait steady. PSYCH: Normal affect. No signs of depression or anxiety. Course Course Level of Care: Express Care Visit Vital Signs Vital signs: Vital Signs Temperature 98.1 F 03/16/23 15:55 Pulse Rate 96 03/16/23 15:55 Respiratory Rate 18 03/16/23 15:55 Blood Pressure 121/82 03/16/23 15:55 Pulse Oximetry 99 03/16/23 15:55 Oxygen Delivery Room Air 03/16/23 15:55 Temperature 98.1 F 03/16/23 15:55 Pulse Rate 96 03/16/23 15:55 Respiratory Rate 18 03/16/23 15:55 Blood Pressure 121/82 03/16/23 15:55 Pulse Oximetry 99 03/16/23 15:55 Oxygen Delivery Room Air 03/16/23 15:55 Reviewed MDM - URI/Sore Throat MDM Narrative Medical decision making narrative: Symptoms and exam consistent with bronchitis. Will treat with prednisone, Cheratussin, and an albuterol inhaler.
== END 2023-03-16 16:41 | disposition home or self-care (01) ==
PROVIDERS: Emergency Provider Nurse Practitioner; PCP Nurse Practitioner Family
DX: J40 Bronchitis, not specified as acute or chronic (principal); E03.9 Hypothyroidism, unspecified; E11.9 Type 2 diabetes mellitus without complications; Z79.899 Other long term (current) drug therapy; Z79.84 Long term (current) use of oral hypoglycemic drugs
CPT/HCPCS: 99213; G0463

== ENCOUNTER 2023-04-05 11:53 | Emergency (ER) | payer MEDICARE, MEDICAID, SELFPAY ==
--- NOTE | ~2023-04-05 | XR_ITS ---
EXAMINATION: XR chest 2V 04/05/2023 12:55 INDICATION: Productive cough PROCEDURE: 2 view chest COMPARISON: Comparison to multiple prior studies sequentially, with oldest reviewed study dated 01/22. FINDINGS: The lungs are clear. The cardiomediastinal silhouette is within normal limits. There are no pleural effusions. There is no pneumothorax suspected. Calcified granuloma left lung base. IMPRESSION: 1: NO ACUTE CARDIOPULMONARY DISEASE. Reviewed, dictated and finalized at location L. [employer]
[2023-04-05 12:07] VITALS: BP 142/79; PULSE 115; RESP 24; TEMP 37.8; O2SAT 95
--- NOTE | 2023-04-05 12:35 | ED.URI ---
HPI - URI/Sore Throat General Chief Complaint: Upper Respiratory Infection Stated Complaint: Cough Time Seen by Provider: 04/05/23 12:34 Source: patient and RN notes reviewed Mode of arrival: ambulatory Limitations: no limitations History of Present Illness HPI Narrative: 58-year-old female presents with concern for cough. She reports she began having heaviness in her chest about 3 days ago. She was seen here in the middle of March for the same symptoms. Reports after being seen in March her cough improved but the wheezing did not. She has been using the inhaler she was prescribed without relief. One week ago she had a hysterectomy, she was not hospitalized after that surgery. She denies measures fever, aches, chills, sweats. She reports she is unable to get in her primary care doctor MD elicited complaint: cough Related Data Home Medications Medication Instructions Recorded Confirmed fluoxetine 20 mg capsule 20 mg PO DAILY 04/07/19 04/05/23 lamotrigine 200 mg tablet 200 mg PO DAILY 04/07/19 04/05/23 levothyroxine 100 mcg tablet 100 mcg PO DAILY 04/07/19 04/05/23 topiramate 50 mg tablet 50 mg PO DAILY 04/07/19 04/05/23 metformin 500 mg tablet 500 mg PO DAILY 12/13/22 04/05/23 rosuvastatin 5 mg tablet 5 mg PO DAILY 12/13/22 04/05/23 clonazepam 2 mg tablet 2 mg PO DIRECTED 03/11/23 04/05/23 acyclovir 400 mg tablet 400 mg DIRECTED 04/05/23 04/05/23 Allergies Allergy/AdvReac Type Severity Reaction Status Date / Time Penicillins Allergy Unknown Other Verified 03/16/23 15:54 Review of Systems Review of Systems: CONSTITUTIONAL: Reports malaise. Denies chills, sweats, or fever. EYES: Denies visual changes, redness, or discharge. ENT: Reports rhinorrhea. Denies congestion, sinus pain, otalgia and sore throat. CARDIOVASCULAR: Denies chest pain, palpitations, or edema. RESPIRATORY: Reports persistent productive cough, dyspnea with coughing fit. SKIN: Denies rash or itching. MUSCULOSKELETAL: Denies myalgia. NEUROLOGIC: Denies headache. All systems reviewed & are unremarkable except as noted in HPI and below PMFSH Past Medical History Medical History Anxiety and depression Hypothyroid Type 2 diabetes mellitus Comments At time of signature, agree with nursing past medical, surgical, social and family history. There is no relevant family history pertinent to the presenting complaint Exam Narrative: GENERAL: Nontoxic-appearing, well-nourished, and in no acute distress. HEAD: Normocephalic EYES: PERRLA, conjunctivae clear ENT: Nares clear. Mucous membranes moist. TM pearly valdez with sharp light reflex bilaterally; no tragal tenderness. Oropharynx not erythematous without lesions. Tonsils not enlarged and without exudate, no drooling, no hoarseness, no trismus, uvula midline. NECK: Supple. No lymphadenopathy CHEST: Scattered inspiratory and expiratory wheeze, aeration fair, breath sounds diminished in the bases. No rhonchi, rales, or stridor. No respiratory distress, speaks in full sentences. HEART: Regular rate and rhythm. No murmur heard. SKIN: Warm, dry, no rash. NEURO: Alert and oriented x3. PSYCH: Normal mood and affect Course Course Emergency Course: Patient is aware of diagnosis, understands and agrees to treatment plan. Anticipatory guidance given. Patient agrees to follow-up as directed and is aware of reasons to seek care at the emergency department. Portions of this record may have been created with voice recognition software Level of Care: Express Care Visit Vital Signs Vital signs: Vital Signs Temperature 100.1 F H 04/05/23 12:07 Pulse Rate 115 H 04/05/23 12:07 Respiratory Rate 24 H 04/05/23 12:07 Blood Pressure 142/79 H 04/05/23 12:07 Pulse Oximetry 95 04/05/23 12:07 Oxygen Delivery Room Air 04/05/23 12:07 Temperature 100.1 F H 04/05/23 12:07 Pulse Rate 115 H 04/05/23 12:07 Respiratory Rate
== END 2023-04-05 13:21 | disposition home or self-care (01) ==
PROVIDERS: Emergency Provider Nurse Practitioner; PCP Nurse Practitioner Family
DX: J40 Bronchitis, not specified as acute or chronic (principal); Z20.822 Contact with and (suspected) exposure to COVID-19; E03.9 Hypothyroidism, unspecified; E11.9 Type 2 diabetes mellitus without complications; F41.9 Anxiety disorder, unspecified; F32.A Depression, unspecified
CPT/HCPCS: 71046; 87426; 87804; 99213; C9803; G0463

== ENCOUNTER 2023-06-03 14:15 | Outpatient (CLI) | payer MEDICARE, MEDICAID, SELFPAY ==
--- NOTE | ~2023-06-03 | MMUS_ITS ---
EXAMINATION: MM diagnostic gabriel RT w odin, US breast RT limited HISTORY: Follow-up right breast mass TECHNIQUE: Additional 3-D tomosynthesis images of the right breast were performed and synthetic 2-D i mages were generated. CAD analysis was submitted and interpreted. High resolution Limited right breas t ultrasound was performed. COMPARISON: Comparison to multiple prior studies sequentially, with oldest reviewed study dated 01/22. BREAST PARENCHYMAL COMPOSITION: Not Dense: Breast are almost entirely fatty. FINDINGS: MAMMOGRAPHIC FINDINGS: There is a persistent small 3-4 mm mass with central radiolucency in the subareolar location of the r ight breast. There are no new masses, calcifications or architectural distortion. ULTRASOUND: Limited right breast ultrasound: In the periareolar location of the right breast at 12-1:00 there is a stable 5 mm oval hypoechoic mass with echogenic hilum, consistent with benign intramammary lymph no de. No evidence for malignancy. IMPRESSION: 1. No evidence for malignancy in the right breast. 2. Routine yearly screening mammogram and regular clinical breast examination are recommended. BI-RADS Category 2: Benign finding(s). Reviewed, dictated and finalized at location A. CARVER IMPRESSION: 1. No evidence for malignancy in the right breast. 2. Routine yearly screening mammogram and regular clinical breast examination a re recommended. BI-RADS Category 2: Benign finding(s).
== END 2023-06-03 14:16 ==
DX: N63.10 Unspecified lump in the right breast, unspecified quadrant (principal); R92.8 Other abnormal and inconclusive findings on diagnostic imaging of breast
CPT/HCPCS: 76642; 77061; 77065; G0279

== ENCOUNTER 2023-08-31 21:18 | Emergency (ER) | payer MEDICARE, MEDICAID, SELFPAY ==
--- NOTE | ~2023-08-31 | XR_ITS ---
XR knee LT 3V DATE: 08/31/2023 21:53 INDICATION: Knee injury, pain TECHNIQUE: 3 views including cross table lateral COMPARISON: 12/27/2018 left knee FINDINGS: There is prominent periarticular spurring at the patellofemoral joint and to lesser extent lateral compartment. Medial and lateral compartment joint spaces are relatively preserved. No fracture or dislocation, periosteal reaction or bone destruction. No radiopaque intra-articular l oose body or chondrocalcinosis. No joint effusion is noted. IMPRESSION: Osteoarthritis, particularly at patellofemoral joint Reviewed, dictated and finalized at location A.
[2023-08-31 21:33] VITALS: BP 156/84; PULSE 94; RESP 16; TEMP 36.8; O2SAT 95
--- NOTE | 2023-08-31 22:18 | ED.LOWEXIN ---
HPI - Extremity Injury (Lower) General Chief Complaint: Extremity Injury, Lower Stated Complaint: L knee injury Time Seen by Provider: 08/31/23 21:29 History of Present Illness HPI Narrative: 58-year-old female with a reported history of chronic knee pain presents to emergency department for left knee pain. States earlier today she was moving a box with her left foot when she began developing sudden onset pain in her left knee. States she has been having some difficulty bearing weight secondary to the pain. She is not taking anything for her pain. She follows with Dr. Arango and gets steroid injections in her knee, her last injection was approximately 1 month ago. Denies other injuries acquired. Related Data Home Medications Medication Instructions Recorded Confirmed fluoxetine 20 mg capsule 20 mg PO DAILY 04/07/19 04/05/23 lamotrigine 200 mg tablet 200 mg PO DAILY 04/07/19 04/05/23 levothyroxine 100 mcg tablet 100 mcg PO DAILY 04/07/19 04/05/23 topiramate 50 mg tablet 50 mg PO DAILY 04/07/19 04/05/23 metformin 500 mg tablet 500 mg PO DAILY 12/13/22 04/05/23 rosuvastatin 5 mg tablet 5 mg PO DAILY 12/13/22 04/05/23 clonazepam 2 mg tablet 2 mg PO DIRECTED 03/11/23 04/05/23 acyclovir 400 mg tablet 400 mg DIRECTED 04/05/23 04/05/23 Allergies Allergy/AdvReac Type Severity Reaction Status Date / Time Penicillins Allergy Unknown Other Verified 08/31/23 21:43 Review of Systems Review of Systems: CONSTITUTIONAL: Denies fever, chills, or sweats. EYES: Denies visual changes, redness, or discharge. ENT: Denies rhinorrhea, congestion, sore throat, or otalgia. CARDIOVASCULAR: Denies chest pain, palpitations, or edema. RESPIRATORY: Denies cough or dyspnea. GASTROINTESTINAL: Denies abdominal pain, nausea, vomiting, or diarrhea. GENITOURINARY: Denies dysuria or hematuria. SKIN: Denies rash or itching. MUSCULOSKELETAL: See HPI NEUROLOGIC: Denies headache, numbness, or weakness. PSYCHIATRIC: Denies anxiety or depression. [facility] Past Medical History Medical History Anxiety and depression Hypothyroid Type 2 diabetes mellitus Exam Narrative: GENERAL: Well-appearing, well-nourished, and in no acute distress. HEAD: Normocephalic, atraumatic NECK: Supple. CHEST: Clear to auscultation. No respiratory distress. HEART: Regular rate and rhythm. No murmur heard. Normal peripheral pulses. EXTREMITIES: LLE: Left knee without deformity, erythema, warmth or edema. Tenderness to the proximal tibia. Full active passive range of motion of knee. DP pulse 2 +. Sensation intact. SKIN: Warm, dry, no rash. NEURO: No focal deficits. Alert and oriented x3 Course Vital Signs Vital signs: Vital Signs Temperature 98.2 F 08/31/23 21: Pulse Rate 94 08/31/23 21:33 Respiratory Rate 16 08/31/23 21:33 Blood Pressure 156/84 H 08/31/23 21:33 Pulse Oximetry 95 08/31/23 21:33 Oxygen Delivery Room Air 08/31/23 21:33 Temperature 98.2 F 08/31/23 21:33 Pulse Rate 94 08/31/23 21:33 Respiratory Rate 16 08/31/23 21:33 Blood Pressure 156/84 H 08/31/23 21:33 Pulse Oximetry 95 08/31/23 21:33 Oxygen Delivery Room Air 08/31/23 21:33 MDM - Extremity Injury (Lower) MDM Narrative Medical decision making narrative: 58-year-old female with reported history of chronic knee pain presents to the emergency department for left knee pain after skipping a box on the ground with her left foot earlier today. Triage vitals stable. Exam is unremarkable. X-ray of the knee shows osteoarthritis, particularly at the patellofemoral joint. Imaging discussed. Patient was placed in an Daniel wrap and provided crutches as well as Tylenol naproxen. Naproxen the pharmacy. Encouraged follow-up with her orthopedist. Strict ED return precautions provided. She is agreeable to plan verbalized understanding. Discharged in stable condition. Discharge Plan Discharge C
[2023-08-31] MEDS: NAPROXEN 500 MG TABLET PO (22:23)
[2023-08-31] MEDS: ACETAMINOPHEN 500 MG TABLET 1000 MG PO (22:23)
== END 2023-08-31 22:32 | disposition home or self-care (01) ==
PROVIDERS: Emergency Provider Physician Assistant; PCP Nurse Practitioner Family
DX: M25.562 Pain in left knee (principal); G89.29 Other chronic pain; E03.9 Hypothyroidism, unspecified; E11.9 Type 2 diabetes mellitus without complications; F32.A Depression, unspecified; F41.9 Anxiety disorder, unspecified; Z79.84 Long term (current) use of oral hypoglycemic drugs
CPT/HCPCS: 73562; 99283; A9270

== ENCOUNTER 2024-01-09 13:53 | Outpatient (CLI) | payer MEDICARE, MEDICAID, SELFPAY ==
--- NOTE | ~2024-01-09 | MM_ITS ---
EXAMINATION: MM screening gabriel BI w odin HISTORY: Screening mammogram TECHNIQUE: Craniocaudal and mediolateral oblique 3-D tomosynthesis images were obtained and synthetic 2-D images were generated. CAD analysis was submitted and interpreted. COMPARISON: 06/03/2023, 09/13/2022, 04/09/2019 BREAST PARENCHYMAL COMPOSITION:Not Dense. The breasts are almost entirely fatty FINDINGS: No suspicious mass, calcification, or architectural distortion are identified in either joan ast to suggest malignancy. There has been no suspicious interval change. IMPRESSION: No mammographic evidence of malignancy. Recommend routine screening mammography in one year. BI-RADS Category 1: Negative Reviewed, dictated and finalized at location .
== END 2024-01-09 13:54 | disposition home or self-care (01) ==
LOC: MICIMG 13:56
PROVIDERS: PCP Nurse Practitioner Family; Visit Provider Nurse Practitioner Family
DX: Z12.31 Encounter for screening mammogram for malignant neoplasm of breast (principal)
CPT/HCPCS: 77063; 77067

== ENCOUNTER 2024-02-24 12:36 | Emergency (ER) | payer MEDICARE, MEDICAID, SELFPAY ==
--- NOTE | ~2024-02-24 | XR_ITS ---
EXAMINATION: XR chest 2V DATE: 02/24/2024 13:12 INDICATION: Cough. TECHNIQUE: Frontal and lateral views of the chest were obtained. COMPARISON: Chest 2 views 04/05/2023 FINDINGS: A calcified left lung nodule and calcified left hilar lymph nodes are consistent with old g ranulomatous disease. No pleural effusion or pneumothorax. The heart size is normal. IMPRESSION: 1. No acute cardiopulmonary disease. Reviewed, dictated and finalized at location A.
[2024-02-24 12:43] VITALS: BP 131/62; PULSE 90; RESP 18; TEMP 36.9; O2SAT 100
--- NOTE | 2024-02-24 13:03 | ED_ITS ---
HPI - URI/Sore Throat General Chief Complaint: Upper Respiratory Infection Stated Complaint: Bodyaches/Sore Throat Time Seen by Provider: 02/24/24 13:04 Source: patient, RN notes reviewed and old records reviewed Mode of arrival: ambulatory Limitations: no limitations History of Present Illness HPI Narrative: Patient presents with complaints of 3 days of cough, body aches, headache. She reports associated fatigue. She reports cough does sometimes cause sore throat. She reports sore throat easily remedied with cough drops and only present when coughing. She has been taking Tylenol for her symptoms with poor relief. She does not believe she has been running a fever. She denies any shortness of breath. Says cough is not productive, no wheezing. No other concerns or complaints today. Related Data Home Medications Medication Instructions Recorded Confirmed fluoxetine 20 mg capsule 20 mg PO DAILY 04/07/19 02/24/24 lamotrigine 200 mg tablet 200 mg PO DAILY 04/07/19 02/24/24 levothyroxine 100 mcg tablet 100 mcg PO DAILY 04/07/19 02/24/24 topiramate 50 mg tablet 50 mg PO DAILY 04/07/19 02/24/24 metformin 500 mg tablet 500 mg PO DAILY 12/13/22 02/24/24 rosuvastatin 5 mg tablet 5 mg PO DAILY 12/13/22 02/24/24 clonazepam 2 mg tablet 2 mg PO DIRECTED 03/11/23 02/24/24 acyclovir 400 mg tablet 400 mg DIRECTED 04/05/23 02/24/24 loratadine 10 mg tablet 10 mg PO DAILY 10/10/23 02/24/24 mirabegron 25 mg tablet,extended 25 mg PO DAILY 10/10/23 02/24/24 release 24 hr (Myrbetriq) pantoprazole 40 mg tablet,delayed 40 mg PO QAM 10/10/23 02/24/24 release Allergies Allergy/AdvReac Type Severity Reaction Status Date / Time Penicillins AdvReac Intermediate Hives Verified 02/24/24 12:38 Review of Systems Review of Systems: All systems reviewed & are unremarkable except as noted in HPI and below Constitutional: Constitutional: Reports as per HPI, Reports no additional constitutional complaints, Reports body ache(s), Reports chills, Reports daytime sleepiness, Reports fatigue, Reports headache(s) and Reports lethargy ENT: Reports system reviewed and no additional complaints, except as documented and Reports as per HPI Cardiovascular: Cardiovascular: Reports as per HPI and Reports no additional cardiovascular complaints Respiratory: Respiratory: Reports no additional respiratory complaints Gastrointestinal: Gastrointestinal: Reports as per HPI and Reports no additional gastrointestinal complaints [facility] Past Medical History Medical History Anxiety and depression Hypothyroid Type 2 diabetes mellitus Surgical History Surgical History History of ankle surgery right History of hysterectomy History of sinus surgery History of surgery of uterus History of tubal ligation Family History Family History Sibling Diabetes mellitus Father Pancreatic cancer Social History Social History Second hand tobacco smoke exposure: No Smoking end date: 01/02/20 Alcohol intake: never Substance use: never Substance use type: does not use Do You Feel Safe in your Home?: Yes Lack of Transportation: No Lack of Food: Never True Current Housing: I Have Housing Concerned About Future Housing: Decline to Answer Difficulty Paying Gas/Electric Bills: Decline to Answer Difficulty Paying for Meds: Decline to Answer Currently Unemployed: Decline to Answer Education: Decline to Answer Difficulty w/ Childcare or Family Care: Decline to Answer Living arrangements: alone Occupation/Education: unemployed Additional occupation/education comments: disabled Gender identity (if verbalized by the patient): Female Exam Const: General: cooperative, no acute distress, alert and awake Orientation/consciousness: oriented to person, oriented to place and oriented to time HENMT: Head: normal to inspection Resp: Effort & Inspection: normal respiratory effort and able to speak in complete sentences Auscultation: clear to auscultation bilaterally, no crackles, no rales, no rhonchi and no wheezes Cardio: Palpation: normal PMI Rate: regular rate Rhythm: regular rhythm Heart sounds: S1 normal heart sound present and S2 normal heart sound present Neuro: General: oriented to person, oriented to place and oriented to time Cranial nerves: Yes CN's II-XII intact bilaterally Psych: Appearance: grossly normal Thought process: Normal thought process present Insight: Good insight present (Psych) Judgement: Good judgement present (Psych) Course Course Level of Care: Express Care Visit Vital Signs Vital signs: Vital Signs Temperature 98.4 F 02/24/24 12:43 Pulse Rate 90 02/24/24 12:43 Respiratory Rate 18 02/24/24 12:43 Blood Pressure 131/62 02/24/24 12:43 Pulse Oximetry 100 02/24/24 12:43 Oxygen Delivery Room Air 02/24/24 12:43 Temperature 98.4 F 02/24/24 12:43 Pulse Rate 90 02/24/24 12:43 Respiratory Rate 18 02/24/24 12:43 Blood Pressure 131/62 02/24/24 12:43 Pulse Oximetry 100 02/24/24 12:43 Oxygen Delivery Room Air 02/24/24 12:43 MDM - URI/Sore Throat MDM Narrative Medical decision making narrative: Negative COVID, negative flu, negative chest x-ray. Patient not in any dis tress, she is nontoxic appearing. Extremely hoarse voice noted. Reports severe body aches. Try prednisone burst for 5 days. Counseled about need for increased glycemic control while taking steroids. Patient verbalizes understanding of same. File 0 up with primary care provider. Emergency department for new or worse symptoms Discharge instructions reviewed with patient, as well as provided in writing per nursing staff. The instructions also include specific and strict return/GO TO THE ER as well as f/u information. All questions have been answered, and the patient deny any further questions with discharge and discharge plan. Some parts of this dictation were generated by voice recognition software and may contain typographical and/or grammatical inaccuracies. Differential Diagnosis Differential diagnosis: Likely upper respiratory infection, otitis media, sinusitis, viral infection, bronchitis, influenza and pharyngitis Medical Records Attestation: I reviewed the patient's medical records. Lab Data Attestation: I reviewed the patient's lab results. Imaging Data My impression: negative Radiologist's impression: Ordering Physician: Keyona Grullon FNP Date of Service: 02/24/24 Procedure(s): XR chest 2V Accession Number(s): [id number] cc: Keyona Grullon FNP; TaniaNga APRN~ EXAMINATION: XR chest 2V DATE: 02/24/2024 13:12 INDICATION: Cough. TECHNIQUE: Frontal and lateral views of the chest were obtained. COMPARISON: Chest 2 views 04/05/2023 FINDINGS: A calcified left lung nodule and calcified left hilar lymph nodes are consistent with old granulomatous disease. No pleural effusion or pneumothorax. The heart size is normal. IMPRESSION: 1. No acute cardiopulmonary disease. Reviewed, dictated and finalized at location A. Dictated By: Otto Vann MD 02/24/24 1314 Signed By: <Electronically signed by Otto Vann MD in [place]> 02/24/24 1314 Discharge Plan Discharge Clinical Impression: Upper respiratory infection Qualifiers: URI type: unspecified viral URI Qualified Code(s): J06.9 - Acute upper respiratory infection, unspecified Patient Disposition: Home, Self-Care Condition: Stable Instructions: Antibiotic Form, Viral Syndrome (ED) Additional Instructions: Take medications as prescribed, follow with primary care provider. Emergency department for new or worse symptoms Prescriptions: New prednisone 50 mg tablet 50 mg PO DAILY Qty: 5 0RF No Action metformin 500 mg tablet 500 mg PO DAILY rosuvastatin 5 mg tablet 5 mg PO DAILY lamotrigine 200 mg tablet 200 mg PO DAILY levothyroxine 100 mcg tablet 100 mcg PO DAILY fluoxetine 20 mg capsule 20 mg PO DAILY topiramate 50 mg tablet 50 mg PO DAILY clonazepam 2 mg tablet 2 mg PO DIRECTED (DME) BreatheRite MDI Spacer Spacer See Rx Instructions .ROUTE .MEDSUPPLY Qty: 1 0RF Rx Instructions: As directed acyclovir 400 mg tablet 400 mg DIRECTED mirabegron [Myrbetriq] 25 mg tablet extended release 24 hr 25 mg PO DAILY pantoprazole 40 mg tablet,delayed release (DR/EC) 40 mg PO QAM loratadine 10 mg tablet 10 mg PO DAILY diclofenac sodium 75 mg tablet,delayed release (DR/EC) 75 mg PO BID Qty: 60 2RF Follow-up/Referrals: Tania,Nga, TECHNICIAN ANATOMIC PATHOLOGY [Primary Care Provider] - Time of Disposition: 13:44
[2024-02-24 13:06] LABS: EDCOVIDSCREEN Negative (Negative); EDINFLUASCREEN Negative (Negative); EDINFLUBSCREEN Negative (Negative)
== END 2024-02-24 14:00 | disposition home or self-care (01) ==
PROVIDERS: Emergency Provider Nurse Practitioner Family; PCP Nurse Practitioner Family
DX: J06.9 Acute upper respiratory infection, unspecified (principal); Z20.822 Contact with and (suspected) exposure to COVID-19; Z87.891 Personal history of nicotine dependence; E11.9 Type 2 diabetes mellitus without complications; E03.9 Hypothyroidism, unspecified; F41.9 Anxiety disorder, unspecified; F32.A Depression, unspecified
CPT/HCPCS: 71046; 87426; 87804; 99213; G0463

== ENCOUNTER 2024-03-11 13:04 | Emergency (ER) | payer MEDICARE, MEDICAID, SELFPAY ==
--- NOTE | 2024-03-11 13:06 | ED_ITS ---
HPI - Skin/Abscess/Foreign Bdy General Chief complaint: Skin/Abscess/Foreign Body Stated complaint: Rash/Face Swollen Time Seen by Provider: 03/11/24 13:05 Source: patient Mode of arrival: ambulatory Limitations: no limitations History of Present Illness HPI narrative: Patient is a 59-year-old female that presents with rash to bilateral upper extremities and face. Patient was working in the [employer] on Tuesday and woke up yesterday with arms being very swollen red and itchy. Patient has tried Benadryl cream with mild relief. Denies any shortness of breath or oral swelling. Related Data Home Medications Medication Instructions Recorded Confirmed fluoxetine 20 mg capsule 20 mg PO DAILY 04/07/19 03/11/24 lamotrigine 200 mg tablet 200 mg PO DAILY 04/07/19 03/11/24 levothyroxine 100 mcg tablet 100 mcg PO DAILY 04/07/19 03/11/24 topiramate 50 mg tablet 50 mg PO DAILY 04/07/19 03/11/24 metformin 500 mg tablet 500 mg PO DAILY 12/13/22 03/11/24 rosuvastatin 5 mg tablet 5 mg PO DAILY 12/13/22 03/11/24 clonazepam 2 mg tablet 2 mg PO DIRECTED 03/11/23 03/11/24 acyclovir 400 mg tablet 400 mg PO DIRECTED 04/05/23 03/11/24 loratadine 10 mg tablet 10 mg PO DAILY 10/10/23 03/11/24 mirabegron 25 mg tablet,extended 25 mg PO DAILY 10/10/23 03/11/24 release 24 hr (Myrbetriq) pantoprazole 40 mg tablet,delayed 40 mg PO QAM 10/10/23 03/11/24 release Allergies Allergy/AdvReac Type Severity Reaction Status Date / Time Penicillins AdvReac Intermediate Hives Verified 03/11/24 13:09 Review of Systems Review of Systems: All systems reviewed & are unremarkable except as noted in HPI and below Constitutional: Constitutional: Denies body ache(s), Denies chills, Denies fatigue, Denies fever(s), Denies headache(s), Denies malaise and Denies weakness Eyes: Eyes: Denies blurry vision, Denies irritation and Denies loss of vision ENT: Denies otalgia, Denies headache(s), Denies nasal discharge, Denies sinus pain and Denies sore throat Cardiovascular: Cardiovascular: Denies chest pain, Denies irregular heart rhythm and Denies dyspnea Respiratory: Respiratory: Denies dyspnea Gastrointestinal: Gastrointestinal: Denies abdominal pain, Denies melena, Denies hematochezia, Denies diarrhea, Denies nausea and Denies vomiting Musculoskeletal: Musculoskeletal: Denies back pain, Denies myalgias and Denies arthralgias Integumentary/Breasts: Skin/Breast: Reports pruritus and Reports rash Neurologic: Denies headache(s), Denies loss of vision and Denies weakness Psychiatric: Psychiatric: Reports no additional psychiatric complaints Endocrine: Endocrine: Denies fatigue PMFSH Past Medical History Medical History Anxiety and depression Hypothyroid Type 2 diabetes mellitus Surgical History Surgical History History of ankle surgery right History of hysterectomy History of sinus surgery History of surgery of uterus History of tubal ligation Family History Family History Sibling Diabetes mellitus Father Pancreatic cancer Social History Social History Second hand tobacco smoke exposure: No Smoking end date: 01/02/20 Alcohol intake: never Substance use: never Substance use type: does not use Do You Feel Safe in your Home?: Yes Lack of Transportation: No Lack of Food: Never True Current Housing: I Have Housing Concerned About Future Housing: Decline to Answer Difficulty Paying Gas/Electric Bills: Decline to Answer Difficulty Paying for Meds: Decline to Answer Currently Unemployed: Decline to Answer Education: Decline to Answer Difficulty w/ Childcare or Family Care: Decline to Answer Living arrangements: alone Occupation/Education: unemployed Additional occupation/education comments: disabled Gender identity (if verbalized by the patient): Female Comments At time of signature, agree with nursing past medical, surgical, social and family history. There is no relevant family history pertinent to the presenting complaint. Exam Const: General: cooperative, healthy appearing, comfortable, no acute distress and well nourished Nutritional Appearance: well nourished Orientation/consciousness: patient oriented x3 Limitations: no limitations HENMT: Head: normal to inspection, normocephalic and atraumatic Ears: hearing grossly normal bilaterally and external ears normal Face/Nose/Sinus: Normal external nose present, normal facial exam and face symmetric Face and sinus: normal facial exam and face symmetric Mouth: Yes lip normal Eyes: General: appearance normal, both eyes and all related structures Alignment and Position: alignment normal and position normal Periorbital: periorbital findings normal Eyelids: eyelids normal Pupils: Equal, round and reactive pupils present EOM: EOMs intact bilaterally Neck: Neck: normal visual inspection, full ROM and supple Chest: Chest palpation & inspection: normal inspection of the chest Resp: Effort & Inspection: normal respiratory effort and able to speak in complete sentences Auscultation: clear to auscultation bilaterally Cardio: Rate: regular rate Rhythm: regular rhythm Heart sounds: S1 normal heart sound present and S2 normal heart sound present GI: Inspection: normal to inspection Skin: General skin exam: normal color, erythema (right upper arm), induration (right upper arm) and rashes Rashes: rashes noted vesicles bilateral arm Full body images: 1. 12 x 10 cm Area of erythema, warmth, induration Neuro: General: patient oriented x3 and moves all extremities Cranial nerves: Yes Equal, round and reactive pupils present Speech: normal speech Gait exam (Neuro): Normal gait present Extrem: General: normal to inspection, full ROM and no edema Psych: Appearance: grossly normal and well kempt Mental Status: mental status grossly normal Speech and movement: Normal speech and movement present Affect: normal affect Attitude: cooperative Thought process: Normal thought process present Course Course Emergency Course: Patient is aware of diagnosis, understands and agrees to treatment plan. Anticipatory guidance given. Patient agrees to follow-up as directed and is aware of reasons to seek care at the emergency department. Portions of this record may have been created with voice recognition software Level of Care: Express Care Visit Vital Signs Vital signs: Reviewed MDM - Skin/Abscess/Foreign Bdy MDM Narrative Medical decision making narrative: Exam findings show no acute concerns or changes; patient is non-toxic appearing and is in no distress.? Patient is appropriate for outpatient treatment and follow-up. Discharge instructions reviewed with patient, as well as provided in writing per nursing staff. The instructions also include specific and strict return/GO TO THE ER as well as f/u information. All questions have been answered, and the patient deny any further questions with discharge and discharge plan. Differential Diagnosis Differential diagnosis: Likely abscess of skin or subcutaneous tissue, urticaria, cellulitis and contact dermatitis Medical Records Attestation: I reviewed the patient's medical records. Discharge Plan Discharge Clinical Impression: Contact dermatitis Qualifiers: Contact dermatitis type: irritant Contact dermatitis trigger: non-food plants Qualified Code(s): L24.7 - Irritant contact dermatitis due to plants, except food Cellulitis Qualifiers: Site of cellulitis: extremity Site of cellulitis of extremity: upper extremity Laterality: right Qualified Code(s): L03.113 - Cellulitis of right upper limb Patient Disposition: Home, Self-Care Condition: Stable Instructions: Contact Dermatitis (ED), Cellulitis (ED) Additional Instructions: You have been prescribed Doxycycline today.It may make your skin more sensitive to sunlight than normal. Make sure you wear sunscreen at all times when outside while on the medication. Please follow up with your Primary Care Doctor within 48-72 hours - call for an appointment. Rest and elevate affected area; apply moist heat 3-4 times daily for 10-15 minutes. Take Motrin 600mg every 8 hours with food for pain. Please take Antibiotics as directed. If you experience any worsening redness, swelling, streaking (red lines), fever or chills please go to the ER Take steroids in the morning with food Prevention is always better than treatment. Learn to identify poison gabriela, oak, and sumac and avoid it. Wear long sleeves, long pants, shoes, and socks. If you touched the plant, try to keep your hands away from your eyes, mouth, and face. Wash the skin thoroughly with soap and cool water as soon as possible. Scrub under the fingernails with a brush to prevent spreading of the resin to other parts of the body by touching or scratching. Remember to wash any clothing with soap and hot water as the resin can persist for many months and cause further dermatitis. You should NOT use antihistamine creams or lotions, anesthetic creams containing benzocaine, or antibiotic creams containing neomycin or bacitracin to the skin. These creams or ointments could make the rash worse. For some people, adding oatmeal to a bath, applying cool wet compresses, and applying calamine lotion may help to relieve itching. Once the blisters begin weeping fluid, astringents containing aluminum acetate (Burow's solution) and Domeboro may help to relieve the rash. IF symptoms get worse to follow up with your primary care provider or seek ER visit if you developing difficulty breathing, weakness, dizziness. Prescriptions: New prednisone 10 mg tablet See Rx Instructions .ROUTE .COMPLEX Qty: 35 0RF Rx Instructions: 40 mg daily for 5 days, 20 mg daily for 5 days, 10 mg daily for 5 days doxycycline monohydrate 100 mg tablet 100 mg PO BID 7 Days Qty: 14 0RF No Action metformin 500 mg tablet 500 mg PO DAILY rosuvastatin 5 mg tablet 5 mg PO DAILY lamotrigine 200 mg tablet 200 mg PO DAILY levothyroxine 100 mcg tablet 100 mcg PO DAILY fluoxetine 20 mg capsule 20 mg PO DAILY topiramate 50 mg tablet 50 mg PO DAILY clonazepam 2 mg tablet 2 mg PO DIRECTED (DME) BreatheRite MDI Spacer Spacer See Rx Instructions .ROUTE .MEDSUPPLY Qty: 1 0RF Rx Instructions: As directed acyclovir 400 mg tablet 400 mg PO DIRECTED prednisone 50 mg tablet 50 mg PO DAILY Qty: 5 0RF mirabegron [Myrbetriq] 25 mg tablet extended release 24 hr 25 mg PO DAILY pantoprazole 40 mg tablet,delayed release (DR/EC) 40 mg PO QAM loratadine 10 mg tablet 10 mg PO DAILY diclofenac sodium 75 mg tablet,delayed release (DR/EC) 75 mg PO BID Qty: 60 2RF Follow-up/Referrals: Tania,JADON Sylvester [Primary Care Provider] - 3 Days Time of Disposition: 13:39
[2024-03-11 13:13] VITALS: BP 140/79; PULSE 67; RESP 18; TEMP 37.4; O2SAT 99
[2024-03-11 13:14] VITALS: BP 140/79; PULSE 67; RESP 18; TEMP 37.4; O2SAT 99
== END 2024-03-11 13:40 | disposition home or self-care (01) ==
PROVIDERS: Emergency Provider Nurse Practitioner Family; PCP Nurse Practitioner Family
DX: L24.7 Irritant contact dermatitis due to plants, except food (principal); L03.113 Cellulitis of right upper limb; Z87.891 Personal history of nicotine dependence; E11.9 Type 2 diabetes mellitus without complications; E03.9 Hypothyroidism, unspecified; F41.9 Anxiety disorder, unspecified; F32.A Depression, unspecified
CPT/HCPCS: 99213; G0463